=== PATIENT | female | born 1965 | race Hispanic/Latino ===

== ENCOUNTER → 2020-10-17 | Outpatient (CLI) | payer MEDICARE ==
[~2020-10-17] MED LIST: ACET-2743 PO; AMLO-257 PO; BENA40TA9 PO; DOCU-116 PO; FERS325 PO; MEDR10TA PO; METO25TA6 PO; OXYB5TAB15 PO; PANT40TA55 PO
== END | disposition home or self-care (01) ==
LOC: SHCH 13:23
PROVIDERS: ATTEND Internal Medicine Cardiovascular Disease
DX: I10 Essential (primary) hypertension (principal)
CPT/HCPCS: 93306; 93356

== ENCOUNTER → 2022-08-10 | Outpatient (CLI) | payer OTHER, MEDICARE ==
[~2022-08-10] MED LIST changes: -BENA40TA9 PO; +BENA40TA92 PO; +REGADENOSON 0.4 MG/5 ML PF SYG IVP ONE
== END | disposition home or self-care (01) ==
LOC: SHCH 08:12
PROVIDERS: ATTEND Internal Medicine Cardiovascular Disease
DX: R06.09 Other forms of dyspnea (principal)
CPT/HCPCS: 78452; 96374; 93017; J2785; A9500 ×2